=== PATIENT | male | born 1960 | race Caucasian/White ===

== ENCOUNTER 2016-08-09 04:56 | Day surgery (SDC) | payer OTHER ==
[2016-07-24 13:14] VITALS: BMI 32.5
[~2016-08-09 04:56] MED LIST: BACITRACIN 30 GM TUBE TOPICAL OINTMENT TP ONE
[2016-08-09] MEDS ORDERED: COCAINE HCL 4% TOPICAL SOLUTION 4 ML BOTTLE TP ONE ×2 (11:07→12:06)
[2016-08-09] MEDS ORDERED: LIDOCAINE 1%/EPI 1:100000 (50 ML MULTI DOSE VIAL) ONE (11:09)
[2016-08-09] MEDS ORDERED: ACETAMINOPHEN INJECTION 100 ML IVPB ONE (11:10)
--- NOTE | 2016-08-09 11:12 | HP ---
History & Physical Update - History History: No Change - Physical Physical: No Change - Assessment Assessment: No Change - Plan Plan: No Change (improved with preop antibiotics and steroids, but still symptomatic)
[2016-08-09] MEDS ORDERED: PROPOFOL 20 ML ONE ×2 (11:15→13:53)
[2016-08-09] MEDS ORDERED: MIDAZOLAM HCL 2 MG/2 ML SINGLE DOSE VIAL ONE ×2 (11:15)
[2016-08-09] MEDS ORDERED: ROCURONIUM BROMIDE 50 MG/5 ML VIAL ONE ×2 (11:15)
[2016-08-09] MEDS ORDERED: LIDOCAINE HCL/PF 2% SDV 5ML VIAL ONE (11:16)
[2016-08-09] MEDS ORDERED: ceFAZolin SODIUM 1 GM VIAL ONE (11:18)
[2016-08-09] MEDS ORDERED: SODIUM CHLORIDE 0.9% P/F 10 ML VIAL IJ ONE (11:18)
[2016-08-09] MEDS ORDERED: LIDOCAINE HCL 2% (20ML MULTI-DOSE VIAL) NR ONE (11:18)
[2016-08-09] MEDS ORDERED: DEXAMETHASONE SOD PHOSPHATE 4 MG/1 ML VIAL ONE (11:45)
[2016-08-09] MEDS ORDERED: ceFAZolin SODIUM 1 GM VIAL IVPB ONE (12:05)
[2016-08-09] MEDS ORDERED: LIDOCAINE 1%/EPI 1:100000 (50 ML MULTI DOSE VIAL) INF ONE (12:06)
[2016-08-09] MEDS ORDERED: NEOSTIGMINE METHYLSULFATE 0.5 MG/ML - 10 ML MDV ONE (13:13)
[2016-08-09] MEDS ORDERED: BACITRACIN 30 GM TUBE TOPICAL OINTMENT TP ONE (13:35)
[2016-08-09] MEDS ORDERED: oxyCODONE HCL 5 MG TABLET PO PRN ×2 (13:46→14:07)
[2016-08-09] MEDS ORDERED: TRIMETHOBENZAMIDE HCL 200MG/2ML INJ IM PRN (13:46)
--- NOTE | 2016-08-09 13:46 | OP ---
Operative Note - Note: Operative Date: 08/09/16 Pre-Operative Diagnosis: chronic left ethmoid maxillary and frontal sinusitis, deviated septum Operation: left endoscopic ethmoidectomy, anterior and posterior, left endoscopic maxillary antrostomy with removal of tissue, left endoscopic frontal sinus exploration, nasal septoplasty, partial resection left middle turbinate Findings: chronic sinusitis left ethmoid maxillary and frontal abundant pus from maxillary and ethmoid, very friable mucosal ethmoid, frontal sinus edematous and inflamed but not much pus, deviated septum to right anterior cartilaginous Implants: none Post-Operative Diagnosis: Same as Pre-op Surgeon: Pito Harrison Anesthesiologist/[employer]ALTH[employer] LABORER: Zeke Frank Anesthesia: General Specimens Removed: left middle turbinate, ethmoid and maxillary sinus tissue, nasal septal tissue. Estimated Blood Loss (mls): 50 Blood Volume Replaced (mls): 0 Operative Report Dictated: Yes
[2016-08-09] MEDS ORDERED: LACTATED RINGERS SOLUTION 1,000 ML IV SCH ×2 (14:00→14:15)
[2016-08-09] MEDS ORDERED: ONDANSETRON 4 MG/2 ML VIAL IVPUSH PRN (14:07)
[2016-08-09 14:48] VITALS: TEMP 98.3
[2016-08-09 18:03] VITALS: BP 137/86; PULSE 77
--- NOTE | 2016-08-11 14:13 | PATH ---
Surgical Pathology Report Patient Name: RADHA CLARK [facility]. Rec. #: [id number] /Age/Gender: 1960 (Age: 56) / M Account: [id number] Location: [facility] SURGICAL Taken: 08/09/2016 Received: 08/10/2016 Reported: 08/11/2016 Physicians: Pito Harrison M.D. Specimen(s) Received A: PORTION OF LEFT MIDDLE TURBINATE TISSUE B: LEFT ETHMOID SINUS C: NASAL SEPTUM D: LEFT ETHMOID/MAXILLARY SINUS Clinical History Deviated nasal septum Final Diagnosis A. PORTION OF MIDDLE TURBINATE TISSUE, LEFT, EXCISION: SCLEROTIC APPEARING BONE AND SINONASAL MUCOSA WITH CHRONIC INFLAMMATION. B. ETHMOID SINUS, LEFT, ETHMOIDECTOMY: SINONASAL MUCOSA WITH MARKED CHRONIC INFLAMMATION, FOCAL EDEMA AND FIBROSIS AND FRAGMENTS OF SCLEROTIC APPEARING BONE. C. NASAL SEPTUM, SEPTOPLASTY: BONE AND CARTILAGE WITHOUT SIGNIFICANT PATHOLOGIC CHANGE. D. ETHMOID/MAXILLARY SINUS, LEFT, EXTRACTION: FRAGMENTS OF SINONASAL MUCOSA WITH CHRONIC INFLAMMATION, MUCUS AND CLOTTED BLOOD. Electronically Signed Lupillo Ramirez M.D. Gross Description A. Received in formalin, labeled "portion of left middle turbinate" is a 1.7 x 0.8 x 0.5 cm gaston, irregular portion of cartilage with attached soft tissue and possible bone. The specimen is bisected and entirely submitted in one cassette, following decalcification. B. Received in formalin, labeled "left ethmoid sinus" is a 2.8 x 1.5 x 0.3 cm aggregate of gaston fragments of soft tissue, cartilage and possible bone. The specimen is submitted in toto in one cassette, following decalcification. C. Received in formalin, labeled "nasal septum" is a 1.5 x 0.8 x 0.2 cm aggregate of gaston fragments of cartilage and possible bone. The specimen is entirely submitted in one cassette, following decalcification. D. Received in formalin, labeled "left ethmoid/maxillary sinus" is a 4.5 x 4.0 x 0.3 cm aggregate of gaston-brown soft tissue fragments. A distribution sales representative portion is submitted in one cassette. 08/10/2016 saudi08/10/2016
--- NOTE | 2016-08-19 08:35 | OP ---
DATE OF OPERATION: 08/09/2016 PREOPERATIVE DIAGNOSIS: Chronic left ethmoid, maxillary, and frontal sinusitis, deviated septum. POSTOPERATIVE DIAGNOSIS: Chronic left ethmoid, maxillary, and frontal sinusitis , deviated septum. PROCEDURE: Left endoscopic ethmoidectomy anterior and posterior, left endoscopic maxillary antrostromy with removal of tissue, left endoscopic frontal sinus exploration, nasal septoplasty, partial resection of left middle turbinate. SURGEON: Arturo Harrison MD ANESTHESIOLOGIST: Zeke Frank MD ANESTHESIA: General via endotracheal tube. INDICATIONS: This 56-year-old man has had a longstanding history of chronic sinus symptoms, which have failed to improve with a maximum medical therapy. He has discomfort, which is primarily left-sided as well as obstruction and drainage despite multiple courses of antibiotics. Exam demonstrates deviation of the septum and swollen turbinates. CT scan demonstrates opacification of the left frontal ethmoid and maxillary sinuses. He is now brought to surgery for treatment. FINDINGS: Chronic sinusitis left ethmoid, maxillary, and frontal with abundant pus from the maxillary and ethmoid sinuses, very friable mucosa in the ethmoid sinus , frontal sinus edematous and inflamed but not much pus, deviated septum to the right anteriorly cartilaginous. DESCRIPTION OF PROCEDURE: The patient was brought to the operating room need placed on the operating table in supine position. General endotracheal anesthesia was induced to a satisfactory level. He was prepped and draped in the usual fashion for surgery. The nose was prepped with lidocaine 1% with epinephrine 1:100,000 was infiltrated in the nasal septum. Cocaine 4% pledgets were placed within the nasal cavities. A 0-degree telescope was used for visualization. The nasal septum was intact but deviated. The turbinates were enlarged. Pus was seen emanating from the right middle meatus, and a culture was taken. Lidocaine with epinephrine was infiltrated into the middle turbinate and lateral nasal wall. Additional cocaine pledgets were placed in the left middle meatus. Because of the significant swelling, partial resection of the left middle turbinate was performed with curved scissors. The remnant was cauterized. This opened access to the ethmoid sinus. Significant pus was suctioned from the infundibulum. The uncinate process was removed. Anterior and then posterior ethmoidectomies were performed with the forceps and the Xomed microdebrider. Very friable mucosa was encountered. Care was taken to preserve the lamina papyracea and the fovea ethmoidalis. The posterior cells were also opened. Attention was then turned towards the left maxillary sinus. Left maxillary sinus antrostomy was performed enlarging the natural ostium. Additional significant pus was encountered. Very thickened mucosa. Some polypoid was removed. The sinus was irrigated copiously with saline and then suctioned dry. Attention was then turned towards the left frontal sinus. The 70-degree telescope was utilized to remove the anterior most ethmoid cells, and the frontal recess was then dissected. Significant polypoid tissue was removed. The frontal ostium was then identified and cannulated with a curved suction tip. No significant pus was seen, but mucosal edema was identified. Attention was then turned toward the nasal septum. A nasal septal incision was created. A mucoperichondrial flap was elevated. Deviated cartilaginous septum was identified. Inferior strip was removed. Mildly deviated bony septum was also removed. Scoring incisions were placed and nasal septum was made more midline. The incision was then closed utilizing interrupted 4-0 chromic sutures, and a quilting suture was also placed. Final inspection demonstrated open sinuses on the left and a straighter nasal septum. Nasal stent packing was placed and hydrated. A folded Telfa gauze was then placed in the inferior nasal cavity. The patient tolerated the procedure well. He was then awakened from general anesthesia and transferred to the PACU in stable condition. Estimated blood loss was 50 mL. He received crystalloid during the procedure. Specimens were sent to Pathology including left middle turbinate, ethmoid and maxillary sinus tissue, and nasal septal tissue. There were no complications. ARTURO HARRISON M.D. [id number] MTDD
== END 2016-08-09 17:15 | disposition home or self-care (01) ==
LOC: JASU-SURG 04:56
PROVIDERS: ATTEND Otolaryngology
PROC: 099R4ZZ Drainage of Left Maxillary Sinus, Percutaneous Endoscopic Approach (ICD-10-PCS; 2016-08-09)
PROC: 09JY4ZZ Inspection of Sinus, Percutaneous Endoscopic Approach (ICD-10-PCS; 2016-08-09)
PROC: 09BM4ZZ Excision of Nasal Septum, Percutaneous Endoscopic Approach (ICD-10-PCS; 2016-08-09)
PROC: 09TL4ZZ Resection of Nasal Turbinate, Percutaneous Endoscopic Approach (ICD-10-PCS; 2016-08-09)
PROC: 09TV4ZZ Resection of Left Ethmoid Sinus, Percutaneous Endoscopic Approach (ICD-10-PCS; principal; 2016-08-09 10:00)
DX: J32.1 Chronic frontal sinusitis (principal); J32.2 Chronic ethmoidal sinusitis; J34.2 Deviated nasal septum; J32.0 Chronic maxillary sinusitis
CPT/HCPCS: 87070; 87075; 87076; 87186; 87205; 88302-TC; 88304-TC; 88311-TC; 94760

== ENCOUNTER 2021-05-03 06:10 | Inpatient (IN) | payer OTHER ==
[~2021-05-03 06:10] MED LIST changes: -BACITRACIN 30 GM TUBE TOPICAL OINTMENT TP ONE; +VANCOMYCIN 1,000 MG VIAL (RESTRICTED TO ID ONLY) IVPB ONE
[2021-05-03] MEDS ORDERED: CEFAZOLIN 2 GM in DEXTROSE 5%-WATER - 50 ML IVPB ONE (06:22)
[2021-05-03] MEDS ORDERED: CELECOXIB 200 MG CAPSULE PO ONE (06:22)
[2021-05-03] MEDS ORDERED: TRANEXAMIC ACID 1000 MG/10 ML VIAL IVPUSH ONE (06:22)
[2021-05-03 07:15] VITALS: BMI 4686.6
[2021-05-03] MEDS ORDERED: ceFAZolin SODIUM 1 GM VIAL ONE ×3 (07:17→22:54)
[2021-05-03] MEDS ORDERED: VANCOMYCIN 1,000 MG VIAL (RESTRICTED TO ID ONLY) ONE (07:17)
[2021-05-03] MEDS ORDERED: PROPOFOL 20 ML ONE ×2 (07:24)
[2021-05-03] MEDS ORDERED: LIDOCAINE HCL/PF 2% SDV 5ML VIAL ONE (07:38)
[2021-05-03] MEDS ORDERED: MIDAZOLAM HCL 2 MG/2 ML SINGLE DOSE VIAL ONE (07:40)
[2021-05-03] MEDS ORDERED: BUPIVACAINE HCL/PF 2.5 MG/ML - 30 ML VIAL IJ ONE (07:40)
[2021-05-03] MEDS ORDERED: MAGNESIUM HYDROX 2400MG/30ML ORAL SUSPENSION 30 ML CUP PO PRN (07:52)
[2021-05-03] MEDS ORDERED: MAG HYDROX/AL HYDROX/SIMETH 30 ML UNIT-DOSE CUP PO PRN (07:52)
[2021-05-03] MEDS ORDERED: ONDANSETRON 4 MG/2 ML VIAL IVPUSH PRN (07:52)
[2021-05-03] MEDS ORDERED: LACTATED RINGERS SOLUTION 1,000 ML IV SCH ×2 (08:00→10:00)
[2021-05-03] MEDS ORDERED: DEXMEDETOMIDINE HCL 200 MCG/2 ML IVPB ONE (08:00)
[2021-05-03] MEDS ORDERED: BUPIVACAINE HCL/PF 0.5% (5MG/ML) 10 ML VIAL ONE (08:01)
[2021-05-03] MEDS ORDERED: VANCOMYCIN 1,000 MG VIAL (RESTRICTED TO ID ONLY) IVPB ONE (09:20)
[2021-05-03] MEDS ORDERED: PROMETHAZINE HCL 25 MG/1 ML VIAL IVPUSH PRN (10:00)
[2021-05-03] MEDS ORDERED: HYDROmorphone HCL/PF 1 MG/ML VIAL IVPUSH PRN (10:00)
[2021-05-03] MEDS ORDERED: buPROPion HCL 75 MG TABLET PO SCH (10:00)
[2021-05-03] MEDS ORDERED: DESVENLAFAXINE SUCCINATE 50 MG PO SCH (10:00)
[2021-05-03] MEDS: ACETAMINOPHEN 1000 MG/100 ML VIAL IVPB ONE ×2 (10:16→11:20)
[2021-05-03] MEDS: MULTIVITAMINS (DAILY MVI) TABLET (FP) PO SCH (11:21)
[2021-05-03] MEDS: PANTOPRAZOLE 40 MG TABLET PO SCH (11:21)
[2021-05-03] MEDS ORDERED: DEXTROSE 5%-WATER - 50 ML IVPB ONE ×2 (14:40→22:54)
[2021-05-03] MEDS: CEFAZOLIN 2 GM in DEXTROSE 5%-WATER - 50 ML IVPB SCH ×2 (15:51→23:01)
[2021-05-03] MEDS: oxyCODONE HCL 5 MG TABLET PO PRN ×2 (15:55→18:04)
[2021-05-03] MEDS ORDERED: HYDROmorphone HCl 2 MG/ML VIAL IVPB ONE (20:45)
[2021-05-03] MEDS: oxyCODONE HCL 10 MG SUSTAINED ACTING TABLET PO SCH (22:57)
[2021-05-03] MEDS: SENNOSIDES/DOCUSATE COMBO (SENNA PLUS) TABLET (UD) PO SCH (22:57)
[2021-05-04] MEDS: oxyCODONE HCL 5 MG TABLET PO PRN ×3 (02:40→19:47)
[2021-05-04 07:26] LABS: HEMATOCRIT 39.5 % (35.4-49); HEMOGLOBIN 12.8 GM/dl (11.7-16.9); MCH 29.1 pg (25.7-33.7); MCHC 32.3 g/dl (32.0-35.9); MEAN PLT VOLUME 7.8 fl (7.5-11.1); PLATELET COUNT 293 10^3/uL (134-434); RBC 4.39 M/mm3 (4.00-5.60); RDW 12.7 % (11.9-15.9); WHITE BLOOD COUNT 12.9 K/mm3 (4.0-10.8)
[2021-05-04] MEDS: MULTIVITAMINS (DAILY MVI) TABLET (FP) PO SCH (11:22)
[2021-05-04] MEDS: oxyCODONE HCL 10 MG SUSTAINED ACTING TABLET PO SCH ×3 (11:22→21:28)
[2021-05-04] MEDS: SENNOSIDES/DOCUSATE COMBO (SENNA PLUS) TABLET (UD) PO SCH ×2 (11:23→21:28)
[2021-05-04] MEDS: ASPIRIN 325 MG TABLET PO SCH (11:23)
[2021-05-04] MEDS: PANTOPRAZOLE 40 MG TABLET PO SCH (11:23)
[2021-05-04] MEDS: ACETAMINOPHEN 325 MG TABLET (FP) PO PRN (19:46)
[2021-05-05] MEDS: oxyCODONE HCL 5 MG TABLET PO PRN ×2 (05:33→09:12)
[2021-05-05] MEDS: ACETAMINOPHEN 325 MG TABLET (FP) PO PRN (05:34)
[2021-05-05 08:03] LABS: HEMATOCRIT 35.9 % (35.4-49); HEMOGLOBIN 11.8 GM/dl (11.7-16.9); MCH 29.4 pg (25.7-33.7); MEAN PLT VOLUME 8.1 fl (7.5-11.1); PLATELET COUNT 255 10^3/uL (134-434); RBC 4.03 M/mm3 (4.00-5.60); RDW 12.5 % (11.9-15.9); WHITE BLOOD COUNT 11.8 K/mm3 (4.0-10.8)
[2021-05-05 09:00] VITALS: BP 128/55; PULSE 72; TEMP 98.6
[2021-05-05] MEDS: oxyCODONE HCL 10 MG SUSTAINED ACTING TABLET PO SCH (09:11)
[2021-05-05] MEDS: ASPIRIN 325 MG TABLET PO SCH (09:11)
[2021-05-05] MEDS: MULTIVITAMINS (DAILY MVI) TABLET (FP) PO SCH (09:12)
[2021-05-05] MEDS: SENNOSIDES/DOCUSATE COMBO (SENNA PLUS) TABLET (UD) PO SCH (09:12)
[2021-05-05] MEDS: PANTOPRAZOLE 40 MG TABLET PO SCH (09:12)
== END 2021-05-05 12:40 | disposition home health service (06) | DRG 470 ==
LOC: FM/S 06:10
PROVIDERS: ADMIT Orthopaedic Surgery; ATTEND Orthopaedic Surgery
PROC: 8E0W0CZ Robotic Assisted Procedure of Trunk Region, Open Approach (ICD-10-PCS; 2021-05-03)
PROC: 0SRB0JZ Replacement of Left Hip Joint with Synthetic Substitute, Open Approach (ICD-10-PCS; principal; 2021-05-03 08:28)
DX: M16.12 Unilateral primary osteoarthritis, left hip (principal)
CPT/HCPCS: 36415; 73502-TC-LT-FY; 85027; 94760; 97010-GP; 97116-GP; 97161-GP; J0131

== ENCOUNTER 2021-08-30 06:10 | Day surgery (SDC) | payer OTHER ==
[2021-08-26 15:25] VITALS: BMI 33.9
[2021-08-30] MEDS ORDERED: BUPIVICAINE 0.25%/MORPH PF/KETOROLAC - 51ML DISP.SYRINGE IA ONE ×2 (06:25→09:42)
[2021-08-30] MEDS ORDERED: TRANEXAMIC ACID 1000 MG/10 ML VIAL IVPUSH ONE (06:25)
[2021-08-30] MEDS ORDERED: CELECOXIB 200 MG CAPSULE PO ONE (06:25)
[2021-08-30] MEDS ORDERED: CEFAZOLIN 2 GM in DEXTROSE 5%-WATER - 50 ML IVPB ONE (06:25)
[2021-08-30] MEDS ORDERED: BUPIVACAINE HCL 50 ML ONE ×2 (07:02→07:17)
[2021-08-30] MEDS ORDERED: MIDAZOLAM HCL 2 MG/2 ML SINGLE DOSE VIAL ONE ×2 (07:04→07:17)
[2021-08-30] MEDS ORDERED: fentaNYL CITRATE 250 MCG/5 ML VIAL ONE (07:04)
[2021-08-30] MEDS ORDERED: PROPOFOL 20 ML ONE ×3 (07:04)
[2021-08-30] MEDS ORDERED: ceFAZolin SODIUM 1 GM VIAL ONE ×3 (07:16→16:18)
[2021-08-30] MEDS ORDERED: SODIUM CHLORIDE 0.9% P/F 10 ML VIAL IJ ONE (07:17)
[2021-08-30] MEDS ORDERED: BUPIVACAINE LIPOSOME/PF (EXPAREL) 266 MG/20 ML VIAL ONE (07:17)
[2021-08-30] MEDS ORDERED: THROMBIN (BOVINE) 5,000 UNIT VIAL TP ONE (07:17)
[2021-08-30] MEDS ORDERED: ONDANSETRON 4 MG/2 ML VIAL IVPUSH PRN ×2 (08:00→10:10)
[2021-08-30] MEDS ORDERED: LACTATED RINGERS SOLUTION 1,000 ML IV SCH ×2 (08:00→10:15)
[2021-08-30] MEDS ORDERED: KETOROLAC TROMETHAMINE 30 MG/1 ML VIAL ONE (08:26)
[2021-08-30] MEDS ORDERED: PHENYLEPHRINE HCL 10 MG/1 ML SINGLE DOSE VIAL ONE (08:26)
[2021-08-30] MEDS ORDERED: TRANEXAMIC ACID 1000 MG/10 ML VIAL ONE (08:26)
[2021-08-30] MEDS ORDERED: DEXAMETHASONE SOD PHOSPHATE 4 MG/1 ML VIAL ONE (08:26)
[2021-08-30] MEDS ORDERED: PANTOPRAZOLE 40 MG TABLET PO SCH (10:00)
[2021-08-30] MEDS ORDERED: MULTIVITAMINS (DAILY MVI) TABLET (FP) PO SCH (10:00)
[2021-08-30] MEDS ORDERED: VENLAFAXINE HCL 150 MG E.R. CAPSULE PO SCH (10:00)
[2021-08-30] MEDS ORDERED: oxyCODONE HCL 5 MG TABLET PO PRN ×2 (10:10)
[2021-08-30] MEDS ORDERED: ACETAMINOPHEN 1000 MG/100 ML BAG IVPB ONE (10:10)
[2021-08-30] MEDS: KETOROLAC TROMETHAMINE 30 MG/1 ML VIAL IVPUSH SCH ×2 (11:37→16:46)
[2021-08-30] MEDS ORDERED: DEXTROSE 5%-WATER - 50 ML IVPB ONE (16:19)
[2021-08-30] MEDS: CEFAZOLIN 2 GM in DEXTROSE 5%-WATER - 50 ML IVPB SCH (16:48)
[2021-08-30] MEDS: ACETAMINOPHEN 500 MG TABLET (FP) PO SCH (17:53)
[2021-08-30] MEDS: SENNOSIDES/DOCUSATE COMBO (SENNA PLUS) TABLET (UD) PO SCH (21:21)
[2021-08-30] MEDS: oxyCODONE HCL 10 MG SUSTAINED ACTING TABLET PO SCH (21:21)
[2021-08-31] MEDS ORDERED: DEXTROSE 5%-WATER - 50 ML IVPB ONE (01:10)
[2021-08-31] MEDS ORDERED: ceFAZolin SODIUM 1 GM VIAL ONE (01:10)
[2021-08-31] MEDS: ACETAMINOPHEN 500 MG TABLET (FP) PO SCH ×2 (01:15→06:13)
[2021-08-31] MEDS: CEFAZOLIN 2 GM in DEXTROSE 5%-WATER - 50 ML IVPB SCH (01:15)
[2021-08-31] MEDS ORDERED: ASPIRIN 325 MG TABLET PO SCH (08:00)
[2021-08-31 09:39] VITALS: BP 145/81; PULSE 64; TEMP 98.3
[2021-08-31] MEDS ORDERED: VENLAFAXINE HCL 75 MG E.R. CAPSULES PO SCH (10:00)
[2021-08-31] MEDS: oxyCODONE HCL 10 MG SUSTAINED ACTING TABLET PO SCH (10:10)
[2021-08-31] MEDS: SENNOSIDES/DOCUSATE COMBO (SENNA PLUS) TABLET (UD) PO SCH ×2 (10:14→10:15)
== END 2021-08-31 14:06 | disposition home health service (06) ==
LOC: FASUSAT 06:10 → FM/S 11:14 → FASUSAT 08-31 14:06
PROVIDERS: ATTEND Orthopaedic Surgery
PROC: 8E0YXBZ Computer Assisted Procedure of Lower Extremity (ICD-10-PCS; 2021-08-30)
PROC: 8E0Y0CZ Robotic Assisted Procedure of Lower Extremity, Open Approach (ICD-10-PCS; 2021-08-30)
PROC: 0SRC0L9 Replacement of Right Knee Joint with Medial Unicondylar Synthetic Substitute, Cemented, Open Approach (ICD-10-PCS; principal; 2021-08-30 08:35)
DX: M17.11 Unilateral primary osteoarthritis, right knee (principal)
CPT/HCPCS: 20985; 27446; C1776; S2900; 73560-TC-RT-FY; 94760; 97010-GP; 97116-GP; 97161-GP